=== PATIENT | female | born 1980 | race Caucasian/White ===

== ENCOUNTER 2022-07-27 02:58 | Emergency (ER) | payer OTHER ==
[2022-07-27] MEDS ORDERED: ACETAMINOPHEN 500 MG TABLET (FP) PO ONE (03:31)
[2022-07-27] MEDS ORDERED: ACETAMINOPHEN 500 MG TABLET (FP) ONE (03:58)
[2022-07-27 04:04] VITALS: BMI 26.7
[2022-07-27 05:37] VITALS: BP 104/66; PULSE 80; RESP 20; TEMP 97.6
[2022-07-27 11:03] LABS: EPI CELLS 30 /uL (0-25.1); HYALINE CASTS 1 /uL (0-3.1); URINE APPEARANCE CLEAR; URINE BACTERIA 1160 /uL (0-1359); URINE BILIRUBIN NEGATIVE (NEGATIVE); URINE COLOR YELLOW; URINE GLUCOSE (UA) NEGATIVE (NEGATIVE); URINE KETONE NEGATIVE (NEGATIVE); URINE LEUK ESTERASE NEGATIVE (NEGATIVE); URINE NITRITE NEGATIVE (NEGATIVE); URINE PROTEIN NEGATIVE (NEGATIVE); URINE RBC 42 /uL (0-23.9); URINE UROBILINOGEN 0.2 mg/dL (0.2-1.0); URINE WBC 8 /uL (0-25.8)
== END 2022-07-27 06:00 | disposition home or self-care (01) ==
LOC: JER 02:58
DX: O26.893 Other specified pregnancy related conditions, third trimester (principal); M54.50 Low back pain, unspecified; Z3A.28 28 weeks gestation of pregnancy
CPT/HCPCS: 81003; 87086; 99283-25

== ENCOUNTER 2022-09-15 22:23 | Emergency (ER) | payer OTHER ==
[2022-09-15 22:34] VITALS: BMI 25.6
[2022-09-16 00:42] LABS: BASO % 0.5 % (0-2.0); EOS % 0.4 % (0-4.5); HEMATOCRIT 34.9 % (32.4-45.2); HEMOGLOBIN 12.2 GM/dL (10.7-15.3); LYMPH % 20.7 % (8-40); MCH 33.3 pg (25.7-33.7); MCHC 34.8 g/dl (32.0-36.0); MEAN CELL VOLUME 95.6 fl (80-96); MEAN PLT VOLUME 7.8 fl (7.5-11.1); MONO % 6.9 % (3.8-10.2); NEUT % 71.5 % (42.8-82.8); PLATELET COUNT 251 10^3/uL (134-434); RBC 3.65 M/mm3 (3.60-5.2); RDW 13.8 % (11.6-15.6); WHITE BLOOD COUNT 8.6 K/mm3 (4.0-10.0)
[2022-09-16 04:54] VITALS: RESP 20
[2022-09-16 06:26] VITALS: BP 115/74; PULSE 77; TEMP 97.9
[2022-09-25] MEDS ORDERED: FENTANYL CITRATE/PF 50 MCG/ML VIAL ONE (18:01)
[2022-09-25] MEDS ORDERED: BUPIVACAINE HCL/PF 0.25% (2.5MG/ML) 10 ML VIAL ONE (18:14)
== END 2022-09-16 06:15 | disposition home or self-care (01) ==
LOC: JER 22:23
DX: O9A.213 Injury, poisoning and certain other consequences of external causes complicating pregnancy, third trimester (principal); S80.01XA Contusion of right knee, initial encounter; S80.02XA Contusion of left knee, initial encounter; S60.221A Contusion of right hand, initial encounter; S60.222A Contusion of left hand, initial encounter; W01.0XXA Fall on same level from slipping, tripping and stumbling without subsequent striking against object, initial encounter
CPT/HCPCS: 36415; 76819-TC; 85025; 86850; 86900; 86901; 99284-25

== ENCOUNTER 2022-09-28 09:00 | Inpatient (IN) | payer OTHER ==
[2022-09-28] MEDS ORDERED: BUTORPHANOL TARTRATE 1 MG/ML VIAL IVPB ONE (10:00)
[2022-09-28] MEDS ORDERED: PROMETHAZINE HCL 25 MG/1 ML VIAL IVPB ONE (10:00)
[2022-09-28] MEDS ORDERED: PROMETHAZINE HCL 25 MG/1 ML VIAL IVPUSH ONE (10:00)
[2022-09-28] MEDS ORDERED: ELECTROLYTE-148 SOLN 1,000 ML IV SCH (10:00)
[2022-09-28] MEDS ORDERED: BUTORPHANOL TARTRATE 2 MG/ML VIAL ONE (10:14)
[2022-09-28] MEDS ORDERED: PROMETHAZINE HCL 25 MG/1 ML VIAL ONE (10:14)
[2022-09-28 11:01] LABS: BASO % 3.5 % (0-2.0); EOS % 0.1 % (0-4.5); HEMATOCRIT 36.7 % (32.4-45.2); HEMOGLOBIN 12.5 GM/dL (10.7-15.3); LYMPH % 13.2 % (8-40); MCH 32.2 pg (25.7-33.7); MCHC 34.2 g/dl (32.0-36.0); MEAN CELL VOLUME 94.2 fl (80-96); MEAN PLT VOLUME 7.7 fl (7.5-11.1); MONO % 4.2 % (3.8-10.2); PLATELET COUNT 216 10^3/uL (134-434); RBC 3.89 M/mm3 (3.60-5.2); RDW 13.9 % (11.6-15.6); WHITE BLOOD COUNT 11.6 K/mm3 (4.0-10.0)
[2022-09-28 11:03] VITALS: BMI 25.4
[2022-09-28 11:09] LABS: INR 0.94 (0.83-1.09); PROTHROMBIN TIME (PATIENT) 10.9 SEC (9.7-13.0)
[2022-09-28 11:12] LABS: ACTIVATED PTT 28.9 SECONDS (25.2-36.5)
[2022-09-28 11:19] LABS: CALCIUM 8.5 mg/dL (8.5-10.1)
[2022-09-28 11:22] LABS: CREATININE 0.4 mg/dL (0.55-1.3)
[2022-09-28] MEDS ORDERED: OXYTOCIN 20 UNITS in 0.9% NS 20 UNIT/1,000 ML INFUS.BAG IV ONE ×2 (11:31→14:48)
[2022-09-28 12:37] LABS: HIV INTERPRETATION NEGATIVE (NEGATIVE)
[2022-09-28] MEDS ORDERED: ACETAMINOPHEN 325 MG TABLET (FP) PO PRN (12:38)
[2022-09-28] MEDS ORDERED: WITCH HAZEL 50% (TUCKS) 40 PAD/JAR PAD TP PRN (12:38)
[2022-09-28] MEDS ORDERED: IBUPROFEN 600 MG TABLET (FP) PO PRN (12:38)
[2022-09-28] MEDS ORDERED: oxyCODONE HCL 5 MG TABLET PO PRN (12:38)
[2022-09-28] MEDS ORDERED: BISACODYL 10 MG SUPP.RECT RC PRN (12:38)
[2022-09-28] MEDS ORDERED: BENZOCAINE 28 GM HEMORRHOIDAL OINTMENT TP PRN (12:38)
[2022-09-28] MEDS ORDERED: BENZOCAINE 20% 57 GM BOTTLE TP PRN (12:38)
[2022-09-28] MEDS ORDERED: METHYLERGONOVINE MALEATE 0.2 MG/1 ML AMP IM PRN (12:38)
[2022-09-28] MEDS ORDERED: OXYTOCIN 20 UNITS in 0.9% NS 20 UNIT/1,000 ML INFUS.BAG IV SCH (12:45)
[2022-09-29 08:17] LABS: BASO % 1.2 % (0-2.0); EOS % 0.2 % (0-4.5); HEMATOCRIT 30.4 % (32.4-45.2); HEMOGLOBIN 10.4 GM/dL (10.7-15.3); LYMPH % 18.1 % (8-40); MCH 32.5 pg (25.7-33.7); MCHC 34.2 g/dl (32.0-36.0); MEAN CELL VOLUME 94.9 fl (80-96); MEAN PLT VOLUME 7.4 fl (7.5-11.1); MONO % 5.4 % (3.8-10.2); NEUT % 75.1 % (42.8-82.8); PLATELET COUNT 191 10^3/uL (134-434); RBC 3.21 M/mm3 (3.60-5.2); RDW 14.2 % (11.6-15.6); WHITE BLOOD COUNT 10.2 K/mm3 (4.0-10.0)
[2022-09-29] MEDS: PRENATAL VITAMINS W/ FOLIC ACID TABLET (FP) PO SCH (10:56)
[2022-09-29] MEDS ORDERED: SENNOSIDES/DOCUSATE COMBO (SENNA PLUS) TABLET (UD) PO PRN (22:00)
[2022-09-30] MEDS: PRENATAL VITAMINS W/ FOLIC ACID TABLET (FP) PO SCH (09:56)
[2022-09-30 12:29] VITALS: BP 126/74; PULSE 89; RESP 16; TEMP 97.8
== END 2022-09-30 18:25 | disposition home or self-care (01) | DRG 560 ==
LOC: JLDR 09:00 → J3W 15:00
PROVIDERS: ADMIT Obstetrics & Gynecology; ATTEND Obstetrics & Gynecology
PROC: 10E0XZZ Delivery of Products of Conception, External Approach (ICD-10-PCS; principal; 2022-09-28)
PROC: 0W8NXZZ Division of Female Perineum, External Approach (ICD-10-PCS; 2022-09-28)
PROC: 0HQ9XZZ Repair Perineum Skin, External Approach (ICD-10-PCS; 2022-09-28)
DX: O70.0 First degree perineal laceration during delivery (principal); Z3A.39 39 weeks gestation of pregnancy; Z37.0 Single live birth; Z91.410 Personal history of adult physical and sexual abuse
CPT/HCPCS: 36415; 59409; 80048; 85025; 85610; 85730; 86780; 86850; 86900; 86901; 87389; C9803-CS; U0003; U0005

== ENCOUNTER 2023-10-24 01:15 | Emergency (ER) | payer OTHER ==
[2023-10-24 01:24] VITALS: RESP 18; BMI 28.3
[2023-10-24 04:24] VITALS: BP 110/73; PULSE 64; TEMP 98.1
== END 2023-10-24 03:00 | disposition left against medical advice (07) ==
LOC: JER 01:15
DX: R11.10 Vomiting, unspecified (principal)
CPT/HCPCS: 99281-25